=== PATIENT | female | born 1995 | race Caucasian/White ===

== ENCOUNTER 2020-04-10 22:46 | Emergency (ER) | payer OTHER ==
[~2020-04-10] VITALS: Ht 165.1 cm; Wt 59.1 kg
[2020-04-10 23:29] VITALS: TEMP 98.2
[2020-04-11] MEDS ORDERED: AMOXICILLIN 8751 TAB PO (00:38)
[2020-04-11 01:04] VITALS: BP 126/81; PULSE 85
== END 2020-04-11 01:04 | disposition home or self-care (01) ==
LOC: COL.ER 22:46
DX: S51.831A Puncture wound without foreign body of right forearm, initial encounter (principal); W54.0XXA Bitten by dog, initial encounter

== ENCOUNTER 2021-01-18 15:01 | Emergency (ER) | payer OTHER ==
[~2021-01-18] VITALS: Ht 167.6 cm; Wt 63.6 kg
[~2021-01-18 15:01] MED LIST: AMOXICILLIN 8751 TAB PO
[2021-01-18 15:34] VITALS: BP 111/65; TEMP 98.1
[2021-01-18 15:52] LABS: COLLECTION METHOD CLEAN CATCH
[2021-01-18 15:59] LABS: PH 7 (5-8); SQUAMOUS EPITHELIAL 0-2 /hpf; URINE APPEARANCE Clear; URINE BACTERIA None Seen /hpf; URINE BILIRUBIN Negative (NEGATIVE); URINE BLOOD 1+ (NEGATIVE); URINE COLOR Straw; URINE GLUCOSE Negative (NEGATIVE); URINE KETONE Negative (NEGATIVE); URINE LEUKOCYTE ESTERASE Negative (NEGATIVE); URINE NITRATE Negative (NEGATIVE); URINE PROTEIN(semi-quant) Negative (NEGATIVE); URINE RBC 0-2 /hpf; URINE UROBILINOGEN Negative (NEGATIVE)
[2021-01-18] MEDS ORDERED: VOLTAREN 75 DR75 MG PO (16:15)
[2021-01-18] MEDS ORDERED: FLEXERIL 1010 MG/TAB PO (16:15)
[2021-01-18 16:36] VITALS: PULSE 76
== END 2021-01-18 16:36 | disposition home or self-care (01) ==
LOC: COL.ER 15:01
PROVIDERS: Family Medicine
DX: R10.9 Unspecified abdominal pain (principal); S39.012A Strain of muscle, fascia and tendon of lower back, initial encounter; X50.9XXA Other and unspecified overexertion or strenuous movements or postures, initial encounter

== ENCOUNTER → 2023-05-15 | Outpatient (CLI) | payer OTHER ==
[~2023-05-15] MED LIST changes: +FLEXERIL 1010 MG/TAB PO; +VOLTAREN 75 DR75 MG PO
== END ==
LOC: MHCPAIN 09:47
DX: M54.16 Radiculopathy, lumbar region (principal); M47.896 Other spondylosis, lumbar region
CPT/HCPCS: G0463